=== PATIENT | male | born 1995 | race Caucasian/White ===

== ENCOUNTER 2024-12-01 11:14 | Outpatient (CLI) | payer BC ==
[2024-12-01] MEDS ORDERED: Iopamidol 370 76% 100 ML VIAL ONE (11:37)
== END 2024-12-01 11:15 | disposition home or self-care (01) ==
LOC: CSHCT 11:14
PROVIDERS: ATTEND Family Medicine Sports Medicine
DX: N28.89 Other specified disorders of kidney and ureter (principal); R19.01 Right upper quadrant abdominal swelling, mass and lump
CPT/HCPCS: 74160; Q9967